=== PATIENT | female | born 1990 | race Caucasian/White ===

== ENCOUNTER 2021-09-05 10:19 | Outpatient (CLI) | payer OTHER, SELFPAY ==
[2021-09-05 12:07] LABS: Alanine Aminotransferase 11 U/L (0-33); Albumin Level 4.8 g/dL (3.5-5.2); Alkaline Phosphatase 84 IU/L (35-105); Anion Gap 16.4 (5-19); Aspartate Amino Transferase 11 U/L (0-32); Blood Urea Nitrogen 12 mg/dL (6-20); Calcium 8.8 mg/dL (8.5-10.5); Carbon Dioxide 24 mmol/L (22-29); Chloride 101 mmol/L (98-107); Free T4 Free Thyroxine 0.96 ng/dL (0.82-1.77); Globulin 2.4 g/dL (1.3-4.6); Glomerular Filtration Rate 96.4 mL/min (90-130); Glucose 94 mg/dL (65-115); Osmolality Calculated 284 mOsm/kg (285-295); Potassium 4.4 mmol/L (3.5-5.1); Sodium 137 mmol/L (136-145); T3 Free 2.4 PG/ML (2.0-4.4); Thyroid Stimulating Hormone 2.27 uIU/mL (0.27-4.20); Total Bilirubin 0.3 mg/dL (0.15-1.2); Total Protein 7.2 g/dL (6.6-8.7)
[2021-09-05 12:37] LABS: Cortisol Random 7.67 ug/dL (2.47-19.5)
[2021-09-05 12:54] LABS: Homocysteine 7.79
[2021-09-05 13:09] LABS: 25 Hydroxy Vitamin D 47 ng/mL (30-100)
[2021-09-06 12:16] LABS: Dehydroepiandrosterone Sulfate 138 mcg/dL (19-237)
[2021-09-10 16:33] LABS: T3 Reverse LC/MS/MS 13 ng/dL (8-25)
== END 2021-09-05 10:20 | disposition home or self-care (01) ==
PROVIDERS: PCP Nurse Practitioner Family; Visit Provider Nurse Practitioner Family
DX: R53.83 Other fatigue (principal); E03.9 Hypothyroidism, unspecified; E53.9 Vitamin B deficiency, unspecified
CPT/HCPCS: 36415; 80053; 82306; 82533; 82627; 83090; 84439; 84443; 84481; 84482

== ENCOUNTER 2021-12-06 10:34 | Outpatient (CLI) | payer OTHER, SELFPAY ==
[2021-12-06 11:49] LABS: Basophils # 0.1 10^3/uL (0.0-0.1); Basophils % 0.8 %; Eosinophils # 0.3 10^3/uL (0.0-0.8); Eosinophils % 4.5 %; Hematocrit 44.9 % (37.0-47.0); Hemoglobin 14.6 g/dL (11.5-15.3); Lymphocytes # 2.1 10^3/uL (0.8-4.8); Lymphocytes % 34.8 %; Mean Corpuscular HGB Conc 32.5 g/dL (30.0-36.0); Mean Corpuscular Hemoglobin 27.9 pg (28.0-34.0); Mean Corpuscular Volume 85.7 fl (81-99); Mean Platelet Volume 8.4 fL (7.4-10.4); Monocytes # 0.4 10^3/uL (0.2-0.9); Neutrophils # 3.25 10^3/uL (1.8-7.7); Neutrophils % 53.7 %; Nucleated Red Blood Cells % 0 %; Platelet Count 290 10^3/cmm (130-400); Red Blood Count 5.24 10^6/uL (4.1-5.3); Red Cell Distribution Width 11.7 % (12.1-15.1)
[2021-12-06 12:28] LABS: Cortisol Random 4.73 ug/dL (2.47-19.5)
[2021-12-06 12:49] LABS: 25 Hydroxy Vitamin D 64 ng/mL (30-100); Alanine Aminotransferase 16 U/L (0-33); Albumin Level 4.4 g/dL (3.5-5.2); Alkaline Phosphatase 80 IU/L (35-105); Anion Gap 13.1 (5-19); Aspartate Amino Transferase 14 U/L (0-32); Blood Urea Nitrogen 10 mg/dL (6-20); Calcium 9.2 mg/dL (8.5-10.5); Carbon Dioxide 26 mmol/L (22-29); Chloride 102 mmol/L (98-107); Ferritin 127 ng/mL (15-150); Globulin 2.5 g/dL (1.3-4.6); Glomerular Filtration Rate 115.1 mL/min (90-130); Glucose 79 mg/dL (65-115); Homocysteine 5.66; Iron 114 ug/dL (37-145); Osmolality Calculated 282 mOsm/kg (285-295); Potassium 4.1 mmol/L (3.5-5.1); Sodium 137 mmol/L (136-145); Thyroid Stimulating Hormone 0.03 uIU/mL (0.27-4.20); Total Bilirubin 0.3 mg/dL (0.15-1.2); Total Protein 6.9 g/dL (6.6-8.7); Vitamin B12 999 pg/mL (232-1245)
[2021-12-06 15:53] LABS: Free T4 Free Thyroxine 0.98 ng/dL (0.82-1.77); T3 Free 3.3 PG/ML (2.0-4.4)
[2021-12-08 00:47] LABS: Dehydroepiandrosterone Sulfate 104 mcg/dL (19-237)
== END 2021-12-06 10:35 | disposition home or self-care (01) ==
PROVIDERS: PCP Nurse Practitioner Family; Visit Provider Nurse Practitioner Family
DX: E03.9 Hypothyroidism, unspecified (principal); E55.9 Vitamin D deficiency, unspecified; E53.9 Vitamin B deficiency, unspecified; R53.83 Other fatigue; F41.9 Anxiety disorder, unspecified; E53.8 Deficiency of other specified B group vitamins
CPT/HCPCS: 80053; 82306; 82533; 82607; 82627; 82728; 82746; 83090; 83540; 84439; 84443; 84481; 85025; 86140

== ENCOUNTER 2022-06-29 10:22 | Outpatient (CLI) | payer OTHER, SELFPAY ==
[2022-06-29 11:35] LABS: Basophils % 0.4 %; Eosinophils # 0.2 10^3/uL (0.0-0.8); Eosinophils % 2.6 %; Hematocrit 38.7 % (37.0-47.0); Hemoglobin 13.3 g/dL (11.5-15.3); Lymphocytes # 1.9 10^3/uL (0.8-4.8); Lymphocytes % 23.9 %; Mean Corpuscular HGB Conc 34.4 g/dL (30.0-36.0); Mean Corpuscular Hemoglobin 28.2 pg (28.0-34.0); Mean Corpuscular Volume 82.2 fl (81-99); Mean Platelet Volume 8.7 fL (7.4-10.4); Monocytes # 0.5 10^3/uL (0.2-0.9); Monocytes % 6.5 %; Neutrophils # 5.38 10^3/uL (1.8-7.7); Neutrophils % 66.2 %; Nucleated Red Blood Cells % 0 %; Platelet Count 251 10^3/cmm (130-400); Red Blood Count 4.71 10^6/uL (4.1-5.3); Red Cell Distribution Width 12.1 % (12.1-15.1); White Blood Count 8.1 10^3/uL (4.0-10.0)
[2022-06-29 12:00] LABS: Cortisol Random 6.91 ug/dL (2.47-19.5)
[2022-06-29 12:16] LABS: 25 Hydroxy Vitamin D 34 ng/mL (30-100); Alanine Aminotransferase 16 U/L (0-33); Albumin Level 4.1 g/dL (3.5-5.2); Alkaline Phosphatase 72 U/L (35-105); Anion Gap 10.6 (5-19); Aspartate Amino Transferase 14 U/L (0-32); Blood Urea Nitrogen 7 mg/dL (6-20); Calcium 9.3 mg/dL (8.5-10.5); Carbon Dioxide 24 mmol/L (22-29); Chloride 104 mmol/L (98-107); Ferritin 124 ng/mL (15-150); Globulin 2.5 g/dL (1.3-4.6); Glomerular Filtration Rate 141.2 mL/min (90-130); Glucose 78 mg/dL (65-115); Homocysteine 5.13; Iron 114 ug/dL (37-145); Osmolality Calculated 277 mOsm/kg (285-295); Potassium 3.6 mmol/L (3.5-5.1); Sodium 135 mmol/L (136-145); Thyroid Stimulating Hormone 0.01 uIU/mL (0.27-4.20); Total Bilirubin 0.4 mg/dL (0.15-1.2); Total Protein 6.6 g/dL (6.6-8.7); Vitamin B12 1080 pg/mL (232-1245)
[2022-06-29 12:18] LABS: Folate Level 18.7 ng/mL (4.8-37.3)
[2022-06-30 14:44] LABS: Dehydroepiandrosterone Sulfate 131 mcg/dL (19-237)
[2022-07-04 07:14] LABS: Coenzyme Q10 (COQ10) 0.49 ug/mL (>0.35)
== END 2022-06-29 10:23 | disposition home or self-care (01) ==
PROVIDERS: PCP Nurse Practitioner Family; Visit Provider Nurse Practitioner Family
DX: R53.83 Other fatigue (principal); E03.9 Hypothyroidism, unspecified; F41.9 Anxiety disorder, unspecified; E61.1 Iron deficiency; E55.9 Vitamin D deficiency, unspecified; E53.9 Vitamin B deficiency, unspecified
CPT/HCPCS: 36415; 80053; 82306; 82533; 82542; 82607; 82627; 82728; 82746; 83090; 83540; 84439; 84443; 85025; 86140

== ENCOUNTER 2023-04-19 06:48 | Outpatient (CLI) | payer OTHER, SELFPAY ==
[2023-04-19 08:07] LABS: Basophils # 0.1 10^3/uL (0.0-0.1); Basophils % 0.6 %; Eosinophils # 0.4 10^3/uL (0.0-0.8); Eosinophils % 4.5 %; Hematocrit 41.8 % (36-47); Lymphocytes # 2.9 10^3/uL (0.8-4.8); Lymphocytes % 37.7 %; Mean Corpuscular HGB Conc 32.8 g/dL (30-55); Mean Corpuscular Hemoglobin 28.8 pg (27-33); Mean Corpuscular Volume 87.8 fl (85-98); Mean Platelet Volume 8.3 fL (7.4-10.4); Monocytes # 0.4 10^3/uL (0.2-0.9); Neutrophils # 4.03 10^3/uL (1.8-7.7); Neutrophils % 51.9 %; Nucleated Red Blood Cells % 0 %; Platelet Count 292 10^3/cmm (157-399); Red Blood Count 4.76 10^6/uL (3.85-5.65); Red Cell Distribution Width 11.6 % (12.1-15.1); White Blood Count 7.77 10^3/uL (3.29-11.43)
[2023-04-19 08:19] LABS: Estmated Average Glucose 91; Hemoglobin A1C 4.8 % (4.0-6.0)
[2023-04-19 08:40] LABS: Alanine Aminotransferase 18 U/L (0-33); Albumin Level 4.5 g/dL (3.5-5.2); Alkaline Phosphatase 146 U/L (35-105); Aspartate Amino Transferase 12 U/L (0-32); Blood Urea Nitrogen 18 mg/dL (6-20); Calcium 9.6 mg/dL (8.5-10.5); Carbon Dioxide 23 mmol/L (22-29); Chloride 106 mmol/L (98-107); Chol HDL Ratio 2.79 mg/dL (0.0-4.40); Cholesterol 212 mg/dL (0-200); Globulin 2.5 g/dL (1.3-4.6); Glomerular Filtration Rate 95.2 mL/min (90-130); Glucose 83 mg/dL (65-115); HDL Cholesterol 76 mg/dL (60-100); LDL Cholesterol Calculated 125 mg/dL (50-129); LDL HDL Ratio 1.64 RATIO (0.00-3.22); Magnesium 1.9 mg/dL (1.7-2.3); Osmolality Calculated 293 mOsm/kg (285-295); Sodium 141 mmol/L (136-145); Total Bilirubin 0.4 mg/dL (0.15-1.2); Triglycerides 57 mg/dL (0-150)
[2023-04-19 09:03] LABS: CRP High Sensitivity Cardiac < 0.150 mg/dL (0.0-0.3); Ferritin 83 ng/mL (15-150); Homocysteine 6.46; Iron 107 ug/dL (37-145)
[2023-04-19 09:08] LABS: Free T4 Free Thyroxine 0.61 ng/dL (0.82-1.77)
[2023-04-19 09:16] LABS: Folate Level > 20.0 ng/mL (4.8-37.3)
[2023-04-19 09:19] LABS: 25 Hydroxy Vitamin D 37 ng/mL (30-100); Vitamin B12 1115 pg/mL (232-1245)
[2023-04-19 09:50] LABS: Cortisol Random 13.11 ug/dL (2.47-19.5); Thyroid Stimulating Hormone 1.83 uIU/mL (0.27-4.20)
[2023-04-20 07:50] LABS: Insulin ( Reference Lab Test) 4.6 uIU/mL
[2023-04-20 10:20] LABS: Dehydroepiandrosterone Sulfate 75 mcg/dL (19-237)
[2023-04-20 16:45] LABS: Immunoglobulin E 19 kU/L (<OR=114)
[2023-04-23 09:34] LABS: Thyroglobulin AB <1 IU/mL (< or = 1); Thyroid Peroxidase Antobodies <1 IU/mL (<9)
[2023-04-25 18:00] LABS: T3 Reverse LC/MS/MS 7 ng/dL (8-25)
== END 2023-04-19 06:49 | disposition home or self-care (01) ==
LOC: LAB 06:50
PROVIDERS: PCP Nurse Practitioner Family; Visit Provider Nurse Practitioner Family
DX: R53.82 Chronic fatigue, unspecified (principal); E03.9 Hypothyroidism, unspecified; F41.9 Anxiety disorder, unspecified
CPT/HCPCS: 36415; 80053; 80061; 82306; 82533; 82607; 82627; 82728; 82746; 82785; 83036; 83090; 83525; 83540; 83735; 84439; 84443; 84481; 84482; 85025; 86141; 86376; 86800

== ENCOUNTER 2024-04-29 07:05 | Outpatient (CLI) | payer OTHER, SELFPAY ==
[2024-04-29 07:33] LABS: Basophils % 0.4 %; Eosinophils # 0.3 10^3/uL (0.0-0.8); Eosinophils % 4.3 %; Hematocrit 43.9 % (36-47); Lymphocytes # 2.7 10^3/uL (0.8-4.8); Lymphocytes % 40.3 %; Mean Corpuscular HGB Conc 32.8 g/dL (30-55); Mean Corpuscular Volume 85.2 fl (85-98); Mean Platelet Volume 8.2 fL (7.4-10.4); Monocytes # 0.4 10^3/uL (0.2-0.9); Monocytes % 5.3 %; Neutrophils # 3.35 10^3/uL (1.8-7.7); Neutrophils % 49.6 %; Nucleated Red Blood Cells % 0 %; Platelet Count 324 10^3/cmm (157-399); Red Blood Count 5.15 10^6/uL (3.85-5.65); Red Cell Distribution Width 12.2 % (12.1-15.1); White Blood Count 6.77 10^3/uL (3.29-11.43)
[2024-04-29 08:03] LABS: Alanine Aminotransferase 9 U/L (0-33); Albumin Level 4.3 g/dL (3.5-5.2); Alkaline Phosphatase 71 U/L (35-105); Anion Gap 12.8 (5-19); Aspartate Amino Transferase 11 U/L (0-32); Blood Urea Nitrogen 11 mg/dL (6-20); Calcium 8.5 mg/dL (8.5-10.5); Carbon Dioxide 27 mmol/L (22-29); Chloride 103 mmol/L (98-107); Chol HDL Ratio 3.14 mg/dL (0.0-4.40); Cholesterol 198 mg/dL (0-200); Cortisol Random 14.71 ug/dL (2.47-19.5); Free T4 Free Thyroxine 0.53 ng/dL (0.82-1.77); Globulin 2.3 g/dL (1.3-4.6); Glomerular Filtration Rate 81.2 mL/min (90-130); Glucose 91 mg/dL (65-115); HDL Cholesterol 63 mg/dL (60-100); LDL Cholesterol Calculated 118 mg/dL (50-129); LDL HDL Ratio 1.87 RATIO (0.00-3.22); Osmolality Calculated 287 mOsm/kg (285-295); Potassium 3.8 mmol/L (3.5-5.1); Sodium 139 mmol/L (136-145); T3 Free 1.4 PG/ML (2.0-4.4); Thyroid Stimulating Hormone 0.98 uIU/mL (0.27-4.20); Total Bilirubin 0.3 mg/dL (0.15-1.2); Total Protein 6.6 g/dL (6.6-8.7); Triglycerides 84 mg/dL (0-150)
[2024-04-29 08:30] LABS: Ferritin 74 ng/mL (15-150); Homocysteine 7.06 umol/l (0-15); Iron 69 ug/dL (37-145)
[2024-04-29 08:45] LABS: 25 Hydroxy Vitamin D 29 ng/mL (30-100); Vitamin B12 786 pg/mL (232-1245)
[2024-04-30 06:49] LABS: Dehydroepiandrosterone Sulfate 106 mcg/dL (19-237)
== END 2024-04-29 07:06 | disposition home or self-care (01) ==
LOC: LAB 07:06
PROVIDERS: PCP Nurse Practitioner Family; Visit Provider Nurse Practitioner Family
DX: Z13.228 Encounter for screening for other metabolic disorders (principal); Z13.29 Encounter for screening for other suspected endocrine disorder; Z13.21 Encounter for screening for nutritional disorder; Z13.220 Encounter for screening for lipoid disorders; E55.9 Vitamin D deficiency, unspecified; R53.83 Other fatigue; E03.9 Hypothyroidism, unspecified
CPT/HCPCS: 36415; 80053; 80061; 82306; 82533; 82607; 82627; 82728; 82746; 83090; 83540; 84439; 84443; 84481; 85025; 86140

== ENCOUNTER → 2024-07-04 16:19 | Outpatient (BNVA) | payer OTHER, SELFPAY | PROVIDERS: PCP Nurse Practitioner Family; Visit Provider Nurse Practitioner Family | DX: N39.0 Urinary tract infection, site not specified (principal) | CPT/HCPCS: 81000 ==

== ENCOUNTER → 2024-07-17 17:56 | Outpatient (BNVA) | payer OTHER, SELFPAY | PROVIDERS: PCP Nurse Practitioner Family; Visit Provider Registered Nurse Neonatal Intensive Care | DX: J02.9 Acute pharyngitis, unspecified (principal) | CPT/HCPCS: 87880 ==

== ENCOUNTER 2024-07-25 06:55 | Outpatient (CLI) | payer OTHER, SELFPAY ==
[2024-07-25 07:53] LABS: Free T4 Free Thyroxine 0.71 ng/dL (0.82-1.77); T3 Free 2.2 PG/ML (2.0-4.4); Thyroid Stimulating Hormone 0.66 uIU/mL (0.27-4.20)
== END 2024-07-25 06:56 | disposition home or self-care (01) ==
PROVIDERS: PCP Nurse Practitioner Family; Visit Provider Nurse Practitioner Family
DX: E03.9 Hypothyroidism, unspecified (principal)
CPT/HCPCS: 36415; 84439; 84443; 84481

== ENCOUNTER → 2024-10-03 08:05 | Outpatient (BNVA) | payer OTHER, SELFPAY | PROVIDERS: PCP Nurse Practitioner Family | DX: R39.9 Unspecified symptoms and signs involving the genitourinary system (principal) | CPT/HCPCS: 81000 ==

== ENCOUNTER 2024-12-30 12:02 | Outpatient (RCR) | payer OTHER, SELFPAY | END 2025-01-29 23:59 | disposition home or self-care (01) | LOC: SPT 12:02 | PROVIDERS: Visit Provider Nurse Practitioner Family | DX: M62.89 Other specified disorders of muscle (principal); K59.00 Constipation, unspecified; R39.15 Urgency of urination; N94.10 Unspecified dyspareunia | CPT/HCPCS: 97110; 97161; 97530 ==

== ENCOUNTER 2025-01-30 05:00 | Outpatient (RCR) | payer OTHER, SELFPAY | END 2025-03-01 23:59 | disposition home or self-care (01) | LOC: SPT 05:00 | PROVIDERS: Visit Provider Nurse Practitioner Family | DX: M62.89 Other specified disorders of muscle (principal); K59.00 Constipation, unspecified; R39.15 Urgency of urination; N94.10 Unspecified dyspareunia | CPT/HCPCS: 97110 ==

== ENCOUNTER → 2025-02-10 15:28 | Outpatient (BNVA) | payer OTHER, SELFPAY | DX: E03.9 Hypothyroidism, unspecified (principal) | CPT/HCPCS: 80053; 84439; 84443; 84481; 85025; 85651; 86140 ==

== ENCOUNTER 2025-03-05 10:39 | Outpatient (CLI) | payer OTHER, SELFPAY ==
--- NOTE | 2025-03-05 11:00 | CT_ITS ---
WS: [id number] CT ABDOMEN AND PELVIS WITH CONTRAST HISTORY: abd pain, pain LEFT groin for 2 weeks. TECHNIQUE: Imaging performed of the abdomen and pelvis with IV contrast. Single phase imaging of the abdomen. Coronal and sagittal reformats are submitted. All CT scans at [facility] use at least one of these dose optimization techniques: automated exposure control; mA and/or kV adjustment per patient size (includes targeted exams where dose is matched to clinical indication); or iterative reconstruction. IV CONTRAST: Omnipaque 350; 100 mL IV. Oral contrast: Yes. DLP: 357.17 mGy.cm COMPARISON: None available. Lower thorax: Lung bases are clear. Heart is normal size. No hiatal hernia. Liver/biliary system: Normal size with no intrahepatic dilatation. Gallbladder: Normal. No gallstones or wall thickening. No pericholecystic fluid. Pancreas: Normal size pancreas and pancreatic duct. No adjacent inflammation. Spleen: Normal size spleen. No mass or infarct. Adrenal glands: Normal. Right kidney: Normal. Left kidney: Normal. Aorta: Normal. Lymphadenopathy: None. Free fluid: Small amount of free fluid in the pelvis. GI tract: No GI tract obstruction. The appendix is normal and filled with air. No colitis. Abdominal wall: Fat containing umbilical hernia. Pelvis: Tiny amount of free fluid in the pelvis. Hemorrhagic cyst associated with the LEFT ovary. The entire complex measures 3.0 x 3.7 cm. Bones: Unremarkable. CT/CT abdomen pelvis w con* [id number] IMPRESSION: 1. Normal appendix. 2. No GI tract obstruction. 3. Hemorrhagic LEFT ovarian cyst, 3.0 x 3.7 cm. 4. No renal obstruction. 5. No inguinal hernia.
[2025-03-05] MEDS: iohexol 350 mg/mL 500 mL Btl (per mL) IV (11:24)
== END 2025-03-05 10:40 | disposition home or self-care (01) ==
LOC: RAD 10:40
PROVIDERS: Visit Provider Student in an Organized Health Care Education/Training Program
DX: N83.202 Unspecified ovarian cyst, left side (principal); K42.9 Umbilical hernia without obstruction or gangrene
CPT/HCPCS: 74177

== ENCOUNTER 2025-06-02 07:14 | Outpatient (CLI) | payer OTHER, SELFPAY ==
--- NOTE | 2025-06-02 07:17 | US_ITS ---
WS: [id number] RIGHT UPPER QUADRANT ULTRASOUND HISTORY: RUQ Pain COMPARISON: CT 03/05/2025 Liver: 15.5 cm in length. Normal size liver and echogenicity. No bile duct dilatation or mass. Portal Vein: Normal hepatopetal flow with monophasic waveform. Gallbladder: Normally distended gallbladder with no stones or wall thickening. CBD: 0.3 cm Pancreas: Normal size and echogenicity. Right kidney: 10.5 cm in length. Normal size and echogenicity. No hydronephrosis or mass. Aorta and IVC: Unremarkable abdominal aorta and IVC. No ascites. US/US abdomen limited [id number] IMPRESSION: Normal right upper quadrant ultrasound.
== END 2025-06-02 07:15 | disposition home or self-care (01) ==
LOC: RAD 07:15
PROVIDERS: Visit Provider Nurse Practitioner
DX: R10.11 Right upper quadrant pain (principal)
CPT/HCPCS: 76705